=== PATIENT | female | born 1995 | race Caucasian/White ===

== ENCOUNTER 2020-06-20 15:34 | Emergency (ER) | payer BC ==
[~2020-06-20] VITALS: Ht 167.6 cm; Wt 61.4 kg
[2020-06-20 15:42] VITALS: TEMP 98.8
[2020-06-20] MEDS ORDERED: AZO URINARY PAI95 MG (15:51)
[2020-06-20 16:01] LABS: COLLECTION METHOD CLEAN CATCH
[2020-06-20 16:06] LABS: MUCOUS Present /lpf; PH 7 (5-8); SQUAMOUS EPITHELIAL 0-2 /hpf; URINE APPEARANCE Clear; URINE BACTERIA Rare /hpf; URINE BILIRUBIN Negative (NEGATIVE); URINE BLOOD Negative (NEGATIVE); URINE COLOR Amber; URINE GLUCOSE Negative (NEGATIVE); URINE KETONE Negative (NEGATIVE); URINE LEUKOCYTE ESTERASE Negative (NEGATIVE); URINE NITRATE Positive (NEGATIVE); URINE PROTEIN(semi-quant) Negative (NEGATIVE); URINE RBC None Seen /hpf; URINE UROBILINOGEN >=4.0 mg/dL (NEGATIVE)
[2020-06-20 16:31] LABS: BASO % 0.3 % (0.0-2.0); EOS # 0.1 (0.0-0.7); EOS % 0.7 % (0-4.0); GRAN # 4.5 (1.4-6.5); GRAN % 60.2 % (42.2-75.2); HEMATOCRIT 37.7 % (37.0-47.0); HEMOGLOBIN 12.9 g/dl (12.5-16.0); LYMPH # 2.4 (1.2-3.4); LYMPH % 31.9 % (20.0-51.0); MEAN CELL VOLUME 94 fl (80.0-100.0); MEAN CORPUSCULAR HEMOGLOBIN 32 pg (27.0-31.0); MEAN CORPUSCULAR HGB CONC 34 g/dl (33.0-37.0); MONO # 0.5 (0.1-0.6); MONO % 6.6 % (1.7-9.3); PLATELET COUNT 190 K/mm3 (130-400); RED BLOOD COUNT 4.02 M/mm3 (4.10-5.30); REDCELL DISTRIBUTION WIDTH-CV 11.6 % (11.5-14.5)
[2020-06-20 16:51] LABS: ALANINE AMINOTRANSFERASE 11 U/L (4-34); ALBUMIN 4.7 gm/dL (3.5-5.0); ALKALINE PHOSPHATASE 50 U/L (50-136); ANION GAP 11 mmol/L (7-16); AST,SGOT 20 U/L (15-37); BILIRUBIN,TOTAL 0.4 mg/dL (0.0-1.0); BLOOD UREA NITROGEN 10 mg/dL (7-17); C-REACTIVE PROTEIN < 0.5 mg/dL (0.0-0.9); CALCIUM 9.6 mg/dL (8.4-10.2); CARBON DIOXIDE 27 mmol/L (22-30); CHLORIDE 103 mmol/L (98-107); CREATININE, serum 0.91 (0.52-1.25); GLUCOSE 111 mg/dL (74-106); POTASSIUM 3.7 mmol/L (3.4-5.0); SODIUM 141 mmol/L (137-145)
[2020-06-20] MEDS ORDERED: CEFTIN 250250 MG/TAB PO (16:51)
[2020-06-20 17:34] VITALS: BP 127/80; PULSE 77
== END 2020-06-20 17:34 | disposition home or self-care (01) ==
LOC: COL.ER 15:34
PROVIDERS: Physician Assistant
DX: N39.0 Urinary tract infection, site not specified (principal)
CPT/HCPCS: J0696; J1885; J2405; J7030

== ENCOUNTER → 2020-07-24 | Outpatient (CLI) | payer BC ==
[~2020-07-24] MED LIST: AZO URINARY PAI95 MG; CEFTIN 250250 MG/TAB PO
== END ==
LOC: COL.RAD 07:42
DX: N30.21 Other chronic cystitis with hematuria (principal)

== ENCOUNTER → 2020-11-21 | Outpatient (CLI) | payer BC | LOC: COL.RAD 07:50 | DX: N30.20 Other chronic cystitis without hematuria (principal) ==